=== PATIENT | female | born 1930 | race Caucasian/White ===

== ENCOUNTER → 2017-07-10 | Outpatient (CLI) | payer OTHER ==
[~2017-07-10] MED LIST: ACTOS45 MG PO; ADVAIR 250/501 DISK IH; ASPIR-LOW81 MG PO; ASTEPRO 0.15%30 ML BOTH NARES; ATROVENT 0.03%30 ML BOTH NARES; AVANDAMET 2 MG1 EACH PO; BENADRYL25 MG PO; CELECOXIB200 MG PO; COUMADIN1 MG PO; DIOVAN160 MG PO; DIOVAN80 MG PO; FENTANYL1 EAC5 TD; HYDROCODON-ACE1 EAC7 PO; IRON325 M1 PO; LEXAPRO20 MG PO; LYRICA75 MG PO; METFORMIN HCL1000 MG PO; MIACALCIN4 ML NS; NASONEX17 GM BOTH NARES; PROVENTIL HFA6.7 GM IH; SENNA PLUS TAB1 EACH PO; SENNA-TIME S T1 EACH PO; SYNTHROID75 MCG PO; TRAMADOL HCL50 MG PO; TYLENOL REGULA325 MG PO; VYTORIN 10/11 TABLET PO; VYTORIN 10/21 TABLET PO; XARELTO10 MG PO; ZOCOR40 MG PO
== END | disposition home or self-care (01) ==
LOC: NUC 08:28
DX: K80.20 Calculus of gallbladder without cholecystitis without obstruction (principal)
CPT/HCPCS: 78226; A9537

== ENCOUNTER 2017-11-01 08:39 | Inpatient (IN) | payer OTHER ==
[~2017-11-01] VITALS: Ht 157.5 cm; Wt 59.5 kg
[2017-11-01 09:39] LABS: HEMATOCRIT 34.7 % (36.0-46.0); HEMOGLOBIN 11.5 G/DL (11.9-15.5); MCH 30.3 PG (29.0-34.0); MCHC 33.1 G/DL (30.0-36.0); MCV 91.6 FL (83-99); PLATELET COUNT 188 K/uL (156-360); RBC DIS.WIDTH-CV 13.9 % (11.8-14.6); RED BLOOD COUNT 3.79 M/uL (3.80-5.20); WHITE BLOOD COUNT 6.5 K/uL (4.1-10.2)
[2017-11-01 09:48] LABS: ALBUMIN 4.1 g/dL (3.2-4.8); CHLORIDE 106 mEq/L (99-109); SODIUM 139 mEq/L (136-147)
[2017-11-01 09:50] LABS: GLUCOSE 200 mg/dL (70-99); TOTAL PROTEIN 7.1 g/dL (6.4-8.3)
[2017-11-01 09:52] LABS: TOTAL BILIRUBIN 0.6 mg/dL (0.0-1.0)
[2017-11-01 09:54] LABS: ALKALINE PHOSPHATASE 38 IU/L (3-129); CREATININE 0.8 mg/dL (0.6-1.3); GFR ESTIMATE (CALCULATED) > 59 mL/min/
[2017-11-01 09:55] LABS: UREA NITROGEN (BUN) 16 mg/dL (9-23)
[2017-11-01 09:56] LABS: AST (GOT) 20 IU/L (2-34)
[2017-11-01 09:57] LABS: ALT (GPT) 13 IU/L (3-49)
[2017-11-01] MEDS ORDERED: CYANOCOBALAM1000 MCG PO (11:32)
[2017-11-01] MEDS ORDERED: ST. JOSEPH ASPI81 MG PO (11:32)
[2017-11-01] MEDS ORDERED: VITAMIN D PO (11:34)
[2017-11-01 17:23] VITALS: BP 174/87
[2017-11-01 20:18] VITALS: BP 143/73
[2017-11-01 23:55] VITALS: BP 129/64
[2017-11-02 03:57] VITALS: BP 134/76
[2017-11-02 06:03] LABS: BASOPHIL (%) 0.1 % (0-1); EOSINOPHIL (%) 0.1 % (0-5); HEMATOCRIT 32.9 % (36.0-46.0); HEMOGLOBIN 10.5 G/DL (11.9-15.5); IMMATURE GRANULOCYTE (%) 1.5 % (0.0-0.7); LYMPHOCYTE (%) 12.4 % (15-42); LYMPHOCYTE COUNT 0.9 K/uL (1.0-2.8); MCH 29.7 PG (29.0-34.0); MCHC 31.9 G/DL (30.0-36.0); MCV 92.9 FL (83-99); MONOCYTE (%) 4.1 % (3-12); MONOCYTE COUNT 0.3 K/uL (0-0.8); NEUTROPHIL (%) 81.8 % (45-76); NEUTROPHIL COUNT 5.6 K/uL (1.8-6.4); PLATELET COUNT 203 K/uL (156-360); RED BLOOD COUNT 3.54 M/uL (3.80-5.20); WHITE BLOOD COUNT 6.9 K/uL (4.1-10.2)
[2017-11-02 06:31] LABS: CHLORIDE 103 MEQ/L (99-109); CREATININE 1.2 MG/DL (0.6-1.3); GFR ESTIMATE (CALCULATED) 45 mL/min/; SODIUM 137 MEQ/L (136-147); UREA NITROGEN (BUN) 24 mg/dL (9-23)
[2017-11-02 06:36] LABS: GLUCOSE 317 mg/dL (70-99); POTASSIUM 5.5 MEQ/L (3.7-5.4)
[2017-11-02 07:25] VITALS: BP 152/83
[2017-11-02 07:44] LABS: INTACT PARATHYROID HORMONE 94 pg/mL (10-69)
[2017-11-02 16:25] VITALS: BP 124/68
[2017-11-03] VITALS: BP 147/79
[2017-11-03 07:08] LABS: CHLORIDE 102 MEQ/L (99-109); CREATININE 1.1 MG/DL (0.6-1.3); GFR ESTIMATE (CALCULATED) 50 mL/min/; GLUCOSE 293 mg/dL (70-99); POTASSIUM 4.8 MEQ/L (3.7-5.4); SODIUM 135 MEQ/L (136-147)
[2017-11-03 07:15] LABS: UREA NITROGEN (BUN) 44 mg/dL (9-23)
[2017-11-03 07:50] LABS: BASOPHIL (%) 0.1 % (0-1); EOSINOPHIL (%) 0 % (0-5); HEMATOCRIT 32.3 % (36.0-46.0); HEMOGLOBIN 10.7 G/DL (11.9-15.5); IMMATURE GRANULOCYTE (%) 1.5 % (0.0-0.7); LYMPHOCYTE (%) 8.2 % (15-42); MCHC 33.1 G/DL (30.0-36.0); MCV 93.6 FL (83-99); MONOCYTE (%) 4.9 % (3-12); MONOCYTE COUNT 0.6 K/uL (0-0.8); NEUTROPHIL (%) 85.3 % (45-76); NEUTROPHIL COUNT 10.5 K/uL (1.8-6.4); PLATELET COUNT 214 K/uL (156-360); RBC DIS.WIDTH-CV 14.3 % (11.8-14.6); RBC DIS.WIDTH-SD 48.1 % (39-53); RED BLOOD COUNT 3.45 M/uL (3.80-5.20); WHITE BLOOD COUNT 12.3 K/uL (4.1-10.2)
[2017-11-03 08:29] VITALS: BP 150/76
[2017-11-03 12:11] VITALS: BP 140/72
[2017-11-03 15:26] VITALS: BP 140/68
[2017-11-04] VITALS: BP 126/62
[2017-11-04 08:19] VITALS: BP 129/76
[2017-11-04] MEDS ORDERED: PREDNISONE10 MG PO (09:28)
[2017-11-04] MEDS ORDERED: STIOLTO RESPIMAT4 GM IH (09:29)
[2017-11-04] MEDS ORDERED: TESSALON PERLE100 MG PO (09:30)
== END 2017-11-04 11:31 | disposition home health service (06) | DRG 192 ==
LOC: EME 08:39 → 2EASTP 14:45 → EDOF 14:45 → 2EASTP 14:45 → ENRESERV 14:59 → 2EASTP 17:20
PROVIDERS: Family Medicine; Nurse Practitioner Family
DX: J44.1 Chronic obstructive pulmonary disease with (acute) exacerbation (principal); J20.9 Acute bronchitis, unspecified; J44.0 Chronic obstructive pulmonary disease with (acute) lower respiratory infection; E11.65 Type 2 diabetes mellitus with hyperglycemia; R09.02 Hypoxemia; E78.5 Hyperlipidemia, unspecified; I10 Essential (primary) hypertension; E78.1 Pure hyperglyceridemia; E03.9 Hypothyroidism, unspecified; G62.9 Polyneuropathy, unspecified; F32.9 Major depressive disorder, single episode, unspecified; D64.9 Anemia, unspecified; M81.0 Age-related osteoporosis without current pathological fracture; Z79.4 Long term (current) use of insulin; Z86.73 Personal history of transient ischemic attack (TIA), and cerebral infarction without residual deficits
CPT/HCPCS: 71046; 71275; 80048; 80053; 82306; 82948; 83605; 83970; 85025; 85027; 87040; 87502; 93005; 94640; 94640 76; 94799; 99281; 99285; J1815; J1956; J2930; J7512